=== PATIENT | male | born 1990 | race Caucasian/White ===

== ENCOUNTER 2017-08-17 14:10 | Emergency (ER) | payer OTHER ==
[2017-08-17 14:19] VITALS: BMI 29.6
[2017-08-17] MEDS ORDERED: SODIUM CHLORIDE 1,000 ML IV STA ×2 (15:37→17:01)
--- NOTE | 2017-08-17 16:15 | PDOC ---
History of Present Illness - General Chief Complaint: Lightheaded Stated Complaint: DIZZINESS, HEADACHE Time Seen by Provider: 08/17/17 14:15 - History of Present Illness Initial Comments: 08/17/17 16:16 "The patient is a 27 year old male with no significant past medical history who presents to the emergency department complaining of intermittent episodes of dizziness and lightheadedness that started 3 weeks ago. Pt states that the episodes come on without any known trigger, though [place] He states that they last for a few minutes and resolve completely. He reports associated chest pressure and SOB during the episodes but denies these symptoms at rest. The patient describes feeling like passing out and having a racing heart. Of note, the patient states he lost 13lbs within the past 5 weeks, intentionally. He was on a ketogenic diet until last week. Pt also admits to drinking 4 cups of strong coffee per day. He denies any recent travel/immobilization, no leg swelling, no h/o DVT/PE. Allergies: Patient denies Family History: Father has A fib. Mother recently diagnosed with diabetes Social History: Patient denies smoking.Patient admits last drink was 5 weeks ago. Surgical History: Patient denies " Past History - Past Medical History Allergies/Adverse Reactions: Allergies Allergy/AdvReac Type Severity Reaction Status Date / Time No Known Allergies Allergy Verified 08/17/17 14:13 Home Medications: Ambulatory Orders NK [No Known Home Medication] 08/17/17 COPD: No - Suicide/Smoking/Psychosocial Hx Smoking History: Never smoked Information on smoking cessation initiated: No Hx Alcohol Use: No Review of Systems - Review of Systems Comments:: 08/17/17 16:21 "GENERAL/CONSTITUTIONAL: No fever or chills. No weakness. HEAD, EYES, EARS, NOSE AND THROAT: No change in vision. No ear pain or discharge. No sore throat. CARDIOVASCULAR: + intermittent chest pain and shortness of breath. RESPIRATORY: No cough, wheezing, or hemoptysis. GASTROINTESTINAL: No nausea, vomiting, diarrhea or constipation. GENITOURINARY: No dysuria, frequency, or change in urination. MUSCULOSKELETAL: No joint or muscle swelling or pain. No neck or back pain. SKIN: No rash NEUROLOGIC: No headache, vertigo, loss of consciousness, or change in strength/ sensation. ENDOCRINE: No increased thirst. No abnormal weight change. HEMATOLOGIC/LYMPHATIC: No anemia, easy bleeding, or history of blood clots. ALLERGIC/IMMUNOLOGIC: No hives or skin allergy. " *Physical Exam - Vital Signs Last Vital Signs Temp Pulse Resp BP Pulse Ox 98.9 F 112 H 20 127/91 100 08/17/17 14:10 08/17/17 14:10 08/17/17 14:10 08/17/17 14:10 08/17/17 14:10 - Physical Exam Comments: 08/17/17 16:22 "GENERAL: Awake, alert, and fully oriented, in no acute distress HEAD: No signs of trauma EYES: PERRLA, EOMI, sclera anicteric, conjunctiva clear ENT: Auricles normal inspection, hearing grossly normal, nares patent, oropharynx clear without exudates. Moist mucosa NECK: Nontender, no stepoffs, Normal ROM, supple, no lymphadenopathy, JVD, or masses LUNGS: Breath sounds equal, clear to auscultation bilaterally. No wheezes, and no crackles HEART: Regular rate and rhythm, normal S1 and S2, no murmurs, rubs or gallops ABDOMEN: Soft, nontender, normoactive bowel sounds. No guarding, no rebound. No masses EXTREMITIES: Normal range of motion, no edema. No clubbing or cyanosis. No cords, erythema, or tenderness NEUROLOGICAL: Cranial nerves II through XII intact. 5/5 strength and sensation in all extremities, Normal speech, normal gait, normal cerebellar function SKIN: Warm, Dry, normal turgor, no rashes or lesions noted. " Heart Score/ECG Review - History History: Slightly suspicious - Electrocardiogram EKG: Normal - Age Age: </= 45 - Risk Factors Based on the list above the patient has:: No risk factors known - Troponin Troponin: </= normal limit (NSR, no JEROME/STDs, no TWIs, axis wnl, intervals wnl, rate 91) - Score Heart Score - Total: 0 ED Treatment Course - LABORATORY CBC & Chemistry Diagram: 08/17/17 15:48 08/17/17 15:48 - RADIOLOGY Radiology Studies Ordered: Category Date Time Status CHEST PA & LAT [RAD] Stat Radiology 08/17/17 15:37 Taken Medical Decision Making - Medical Decision Making 08/17/17 16:22 27 M with intermittent episodes of chest pain and shortness of breath. Pt with no symptoms at this time but is mildly tachycardic. No infectious symptoms. Will check TSH. Possible panic/anxiety disorder. Possibly caffeine-related as pt drinks 4 cups of coffee per day. PE unlikely but given tachycardia, cannot PERC out. - Labs, TSH, trop, ddimer - CXR - IVF 08/17/17 18:30 trop and dimer negative CXR clear Labs notable for hemoconcentration, pt likely dehydrated Vitals reassessed s/p fluids - now normal Pt states he feels much better. Repeat HR 70. Pt is well appearing, with normal vitals. Clinically stable for DC at this time. I discussed the physical exam findings, ancillary test results and final diagnoses with the patient. I answered all of the patient's questions. The patient was satisfied with the care received and felt comfortable with the discharge plan and treatment plan. The patient agrees to follow up with the primary care physician within 24-72 hours. *DC/Admit/Observation/Transfer Diagnosis at time of Disposition: Lightheadedness, Dehydration - Discharge Dispostion Disposition: HOME Condition at time of disposition: Stable - Referrals Referrals: Logan Moran MD [Staff Physician] - - Patient Instructions Printed Discharge Instructions: DI for Dehydration -- Adult, DI for Palpitations Additional Instructions: Your bloodwork showed that you were slightly dehydrated today. Drink plenty of liquids to stay hydrated. If you experience worsening lightheadedness, palpitations, chest pain, shortness of breath, or any other concerning symptoms, return to the ER immediately. Otherwise, follow up with your primary doctor within 1 week for a re- evaluation. If you do not have a primary doctor, call the number provided to make an appointment with one of ours. - Post Discharge Activity - Attestations Physician Attestion: 08/17/17 18:34 I, Dr. Yehuda Cates MD, attest that this document has been prepared under my direction and personally reviewed by me in its entirety. I further attest, that it accurately reflects all work, treatment, procedures and medical decision -making performed by me.
[2017-08-17 16:31] LABS: ALBUMIN 4.9 g/dl (3.5-5.0); ALK PHOS 46 U/L (32-92); ANION GAP 8 (8-16); BLOOD UREA NITROGEN 12 mg/dl (7-18); CALCIUM 9.8 mg/dl (8.4-10.2); CHLORIDE 104 mmol/L (98-107); CO2 25 mmol/L (22-28); CREATININE 0.9 mg/dl (0.6-1.3); GLUCOSE,RANDOM 106 mg/dl (74-106); POTASSIUM 3.8 mmol/L (3.5-5.1); SGOT/AST 23 U/L (10-42); SGPT/ALT 26 U/L (10-40); SODIUM 137 mmol/L (136-145); TOT PROT 7.6 g/dl (6.4-8.3)
[2017-08-17 16:33] LABS: BASO % 0.4 % (0-2.0); EOS % 0.5 % (0-4.5); HEMATOCRIT 50.3 % (35.4-49); HEMOGLOBIN 17.2 GM/dl (11.7-16.9); LYMPH % 10.4 % (8-40); MCH 30.2 pg (25.7-33.7); MCHC 34.2 g/dl (32.0-35.9); MEAN CELL VOLUME 88.2 fl (80-96); MEAN PLT VOLUME 9.8 fl (7.5-11.1); MONO % 7.3 % (3.8-10.2); NEUT % 81.4 % (42.8-82.8); PLATELET COUNT 265 K/MM3 (134-434); RDW 12.4 % (11.9-15.9); WHITE BLOOD COUNT 11.1 K/mm3 (4.0-10.8)
[2017-08-17 16:47] LABS: BILIRUBIN,TOTAL < 0.5 mg/dl (0.2-1.0)
[2017-08-17 18:39] VITALS: BP 119/73; PULSE 78; TEMP 97.6
--- NOTE | 2017-08-18 18:14 | EKG ---
Test Reason : Blood Pressure : / mmHG Vent. Rate : 091 BPM Atrial Rate : 091 BPM P-R Int : 164 ms QRS Dur : 088 ms QT Int : 346 ms P-R-T Axes : 048 010 026 degrees QTc Int : 425 ms NORMAL SINUS RHYTHM NORMAL ECG NO PREVIOUS ECGS AVAILABLE Confirmed by MD DODIE, FARRAH ([id number]) on 08/18/2017 6:13:38 PM Referred By: DR EVANS Confirmed By:FARRAH STOLL MD
== END 2017-08-17 19:05 | disposition home or self-care (01) ==
LOC: FER 14:10
PROC: 3E0337Z Introduction of Electrolytic and Water Balance Substance into Peripheral Vein, Percutaneous Approach (ICD-10-PCS; principal; 2017-08-17)
DX: E86.0 Dehydration (principal); R42 Dizziness and giddiness; R00.0 Tachycardia, unspecified
CPT/HCPCS: 36415; 71046-TC-FY; 80053; 82550; 84443; 84484; 85025; 85379; 93005; 99284-25; J7030